=== PATIENT | male | born 1990 | race Caucasian/White ===

== ENCOUNTER 2017-10-13 23:04 | Emergency (ER) | payer BC, OTHER ==
[~2017-10-13] VITALS: Ht 177.8 cm; Wt 131.5 kg
[~2017-10-13 23:04] MED LIST: FLOMAX0.4 MG PO; HYDROCODONE-AP1 EAC6 PO; PHENERGAN 25 MG25 M1 PO
[2017-10-14] MEDS ORDERED: COMBIVIR TABLE1 EACH PO (00:15)
[2017-10-14] MEDS ORDERED: KALETRA 200-501 EACH PO (00:15)
[2017-10-14 01:06] VITALS: BP 132/76
[2017-10-15 13:06] LABS: HEP B SURFACE Ab(ANTI-HBS Reactive (())
[2017-10-15 14:07] LABS: HIV ANTIBODY Non Reactive (Non Reactive)
== END 2017-10-14 01:50 | disposition home or self-care (01) ==
LOC: ER 23:04
PROVIDERS: Emergency Medicine
DX: Z20.6 Contact with and (suspected) exposure to human immunodeficiency virus [HIV] (principal)